=== PATIENT | female | born 1990 | race Caucasian/White ===

== ENCOUNTER → 2021-09-28 13:41 | Outpatient (CLI) | payer OTHER, SELFPAY ==
--- NOTE | 2021-09-28 13:44 | DI.US.S_ITS ---
PROCEDURE: US OB >= 14 WEEKS FETUS INDICATIONS: 20 wk anatomy scan OUTSIDE/PRIOR DATING DATA: Last menstrual period (LMP):04/28/21 LMP-based estimated date of delivery (VERN): 02/02/22. First dating scan (date and location): 07/12/21. Estimated date of delivery (VERN) from first dating scan: 02/02/22. TECHNIQUE: Real-time scanning was performed of the fetus, with image documentation and biometric measurements. COMPARISON: None. FINDINGS: General: A single living intrauterine gestation is present. Presentation: Vertex. Placenta: Placental position is posterior , without previa. Amniotic fluid index: 14.1 cm, normal range is 5-24 cm. heart rate: 152 beats per minute. Maternal cervical canal: 3.7 cm long. Normal lower limit is 2.5 cm. biometrics: Biparietal diameter: 5.5 cm 22 weeks 5 days Head circumference: 20.3 cm 22 weeks 3 days Abdominal circumference: 17.7 cm 20 weeks 4 days Femur length: 3.7 cm 21 weeks 6 days Composite gestational age from initial scan: Not applicable Composite gestational age from present scan: 22 weeks 3 days Estimated weight and percentile: 495 g 69th percentile Anatomic survey: Neuro: Ventricles are non-dilated at less than 10 mm. Cisterna magna is normal at 3-11 mm. Cerebellum is normal in size and morphology. Nuchal skin fold: Normal at less than 6 mm between 14-21 weeks gestational age. Face: Nose and lips, facial profile are not well seen. Spine: No evidence for spina bifida. Heart: 4-chambered heart is present, with normal ventricular outflow tracts. Diaphragm: Diaphragm is intact. Stomach: Left-sided stomach is present. Kidneys: No hydronephrosis. Normal is less than 5 mm in 2nd trimester, less than 7 mm in 3rd trimester. Cord: 3-vessel cord has orthotopic insertion. Bladder: Normal in size. Extremities: All 4 extremities identified. IMPRESSION: Single live intrauterine with ultrasound gestational age today of 22 weeks 3 days. Nose, lips and facial profile are within normal limits. We strive to produce accurate, complete, and clear reports of imaging services. To assist us in improving patient care, this report was composed using standard report templates and voice recognition software. Therefore, it may contain abnormal punctuation, insertions and/or omissions. Occasional wrong-word or sound-alike substitutions may occur. Though we review the report and make efforts to correct it, we do recommend that the report be read carefully in proper context to recognize any text inaccuracies. Dictated by: Viky Jerome M.D. on 10/11/2021 at 13:31 Approved by: Viky Jerome M.D. on 10/11/2021 at 13:37
== END ==
PROVIDERS: Referring Provider Obstetrics & Gynecology; Visit Provider Obstetrics & Gynecology
DX: Z34.02 Encounter for supervision of normal first pregnancy, second trimester (principal); Z3A.22 22 weeks gestation of pregnancy
CPT/HCPCS: 76811

== ENCOUNTER → 2021-11-02 08:54 | Outpatient (CLI) | payer OTHER, SELFPAY ==
[2021-11-02 11:04] LABS: Hematocrit 30.9 % (36-46); Hemoglobin 10.8 g/dL (12.0-16.0)
[2021-11-02 11:45] LABS: GTT (PREG) 1 Hour PP 50gm Dose 91 mg/dL (76-139)
== END ==
PROVIDERS: Referring Provider Obstetrics & Gynecology; Visit Provider Obstetrics & Gynecology
DX: Z34.02 Encounter for supervision of normal first pregnancy, second trimester (principal); Z3A.20 20 weeks gestation of pregnancy
CPT/HCPCS: 36415; 82950; 85014; 85018; 87086

== ENCOUNTER → 2021-12-19 08:45 | Outpatient (CLI) | payer OTHER, SELFPAY ==
[2021-12-19 15:33] LABS: Urine N gonorrhoeae NOT DETECTED
[2021-12-19 15:39] LABS: Urine Chlamydia NOT DETECTED
== END ==
PROVIDERS: Visit Provider Obstetrics & Gynecology
DX: Z34.03 Encounter for supervision of normal first pregnancy, third trimester (principal); Z3A.33 33 weeks gestation of pregnancy
CPT/HCPCS: 87491; 87591

== ENCOUNTER → 2022-01-09 08:17 | Outpatient (CLI) | payer OTHER, SELFPAY ==
[2022-01-10 08:08] LABS: Strep Grp B PCR NEG for Grp B Strep
== END ==
PROVIDERS: Visit Provider Specialist
DX: Z34.03 Encounter for supervision of normal first pregnancy, third trimester (principal); Z3A.36 36 weeks gestation of pregnancy
CPT/HCPCS: 87653

== ENCOUNTER 2022-02-06 08:37 | Outpatient (CLI) | payer OTHER, SELFPAY ==
--- NOTE | 2022-02-06 09:37 | PM.OBTRLD ---
Visit Information Visit Information Date of evaluation: 02/06/22 Primary OB Provider: Roberto Ibarra On-call OB Provider: Roberto Ibarra Reason for Evaluation: Yes non-stress test Comments/Additional reasons for admission: Post-dates, 40+4 PFSH Medical History (Updated 02/06/22 @ 08:35 by Roberto Ibarra MD) Abnormal Pap smear of cervix Chicken pox (~2008) Surgical History (Updated 09/10/21 @ 21:18 by Franny Dodd) History of tonsillectomy S/P ASA/PRK (advanced surface ablation photorefractive keratectomy) (~06/2020) [place] teeth extracted Family History (Updated 09/10/21 @ 21:20 by Franny Dodd) Grandmother Diabetes mellitus Hyperlipidemia Hypertension Congestive heart failure Grandfather Diabetes mellitus Hypertension Hyperlipidemia Depression Stroke Father Hyperlipidemia Mother Breast cancer Social History marital status: unmarried,living together number of children: 0 household members: significant other lives independently: Yes housing: [facility] pets and animals: Yes (2 Dogs) education level: high school occupational status: employed current occupational exposures/hazards: No special edna needs: No travel history: over 6 months ago seatbelt use: always water heater temp set < 120 deg: No (Will adjust) working smoke detector in home: Yes fire extinguisher in home: Yes carbon monox detector in home: Yes firearms in home: Yes firearms unloaded and locked: Yes do you feel safe at home: Yes Smoking Status: Never smoker second hand exposure: No alcohol intake: former substance use type: does not use during the past year weight has: remained stable well-balanced diet: daily or most days daily servings fruits/ve-4 caffeine: Yes (Aware of 200mg limit) Type(s) of exercise: walking and running Evaluation Evaluation Baseline heart rate: 135 Variability: Moderate (11-25) monitor accelerations: Present Monitor Decelerations: Absent Contraction Frequency (minutes): 6 Uterine Contraction Intensity: Mild Cervical dilation (cm): 0 Cervical effacement (%): 90 station: -2 Comments: Bedside US KYRA = 11.2 cm, Gr. 3 fundal placenta Diagnosis, Plan/Disposition Plan/Disposition Plan: Admit for cervical ripening 02/11/2022. Labor precautions. OB Disposition: home
== END 2022-02-06 09:35 | disposition home or self-care (01) ==
LOC: OB 10:50
PROVIDERS: Referring Provider Obstetrics & Gynecology; Visit Provider Obstetrics & Gynecology
DX: O48.0 Post-term pregnancy (principal); Z3A.40 40 weeks gestation of pregnancy
CPT/HCPCS: 59025; 76815; G0378; G0379

== ENCOUNTER 2022-02-09 05:50 | Observation (INO) | payer OTHER, SELFPAY ==
[2022-02-09] MEDS: hydrOXYzine pamoate 25 MG CAPSULE 50 MG PO (06:53)
[2022-02-09] MEDS: MORPHINE 10 MG/ML INJ IM (06:53)
== END 2022-02-09 06:54 | disposition home or self-care (01) ==
LOC: LABOR 05:53
PROVIDERS: Admitting Provider Obstetrics & Gynecology; PCP General Practice; Referring Provider Obstetrics & Gynecology; Visit Provider Obstetrics & Gynecology
DX: O48.0 Post-term pregnancy (principal); Z3A.41 41 weeks gestation of pregnancy
CPT/HCPCS: 59025; 96372; G0378; G0379; J2270

== ENCOUNTER 2022-02-09 20:39 | Inpatient (IN) | payer OTHER, SELFPAY ==
--- NOTE | 2022-02-09 21:15 | P.HPOB_ITS ---
OB HPI Date/Time Date of admission: 02/09/22 Date Patient Seen: 02/09/22 Time Patient Seen: 21:16 History of Present Condition Chief complaint: VERN Calculator Estimated Delivery Date Method Current WG Current Estimate 02/02/22 Ultrasound #1 41w 0d Other Estimates 02/02/22 LMP (Uncertain) 41w 0d Estimated Gestational Age (weeks): 41 : 1 Para: 0 care: good care, initiated at week # (7), number of visits (14) and pounds weight gain (48) Dating criteria OB: LMP confirmed by 1st trimester US Ultrasounds: normal 1st trimester US and normal mid trimester US Obstetrical complications: none Medical complications OB: none Preadmission Labs Last OB Lab Results: Hematocrit 30.9 % (36-46) L 11/02/21 10:03 Hemoglobin 10.8 g/dL (12.0-16.0) L 11/02/21 10:03 Glucose 1 Hour 91 mg/dL (76-139) 11/02/21 10:03 Group B Streptococcus (PCR) Neg for grp b strep 01/09/22 08:17 -: Chlamydia screen: negative, Gonorrhea screen: negative and Urine: negative -: PAP smear: Normal Genetic Screens: Cell-free DNA: Normal External Labs -: Urine: negative Evaluation Evaluation Baseline heart rate: 150 Variability: Moderate (11-25) monitor accelerations: Present Monitor Decelerations: Absent Contraction Frequency (minutes): 3 Uterine Contraction Intensity: Strong/Firm Status: Category l Dilation (cm): 1 Effacement (%): 90 station: -2 [facility] Medical History (Updated 02/06/22 @ 08:35 by Roberto Ibarra MD) Abnormal Pap smear of cervix Chicken pox (~2008) Surgical History (Updated 09/10/21 @ 21:18 by Franny Dodd) History of tonsillectomy S/P ASA/PRK (advanced surface ablation photorefractive keratectomy) (~06/2020) [place] teeth extracted Family History (Updated 09/10/21 @ 21:20 by Franny Dodd) Grandmother Diabetes mellitus Hyperlipidemia Hypertension Congestive heart failure Grandfather Diabetes mellitus Hypertension Hyperlipidemia Depression Stroke Father Hyperlipidemia Mother Breast cancer Social History marital status: unmarried,living together number of children: 0 household members: significant other lives independently: Yes housing: condominium pets and animals: Yes (2 Dogs) education level: high school occupational status: employed current occupational exposures/hazards: No special edna needs: No travel history: over 6 months ago seatbelt use: always water heater temp set < 120 deg: No (Will adjust) working smoke detector in home: Yes fire extinguisher in home: Yes carbon monox detector in home: Yes firearms in home: Yes firearms unloaded and locked: Yes do you feel safe at home: Yes Smoking Status: Never smoker second hand exposure: No alcohol intake: former substance use type: does not use during the past year weight has: remained stable well-balanced diet: daily or most days daily servings fruits/ve-4 caffeine: Yes (Aware of 200mg limit) Type(s) of exercise: walking and running Meds Home Medications and Allergies Home Medications Medication Instructions Recorded Confirmed Type docusate sodium 100 mg capsule 100 mg PO DAILY PRN 08/01/21 02/06/22 History prenat.vits,tulio,aui-avyg-sxnew 1 tab PO DAILY 08/01/21 02/06/22 History Allergies Allergy/AdvReac Type Severity Reaction Status Date / Time neomycin Allergy Mild Verified 02/06/22 08:13 OB Exam Narrative Exam Narrative: Generally: Patient is sitting up at side of bed, in moderate distress secondary to contractions Lungs: Clear to auscultation bilaterally Cardiovascular: Regular rate and rhythm Fundal height: 39 cm Estimated weight: 8-1/2 lb Extremities: Trace edema Assessment and Plan Assessment and Plan Assessment and Plan narrative: Assessment: 31-year-old 1 para 0 at 41 weeks gestation in prodromal labor Patient unable to get comfortable Plan: Admit Pain management Time Spent with Patient Total time spent with greater than 50% in coordination of care (as documented) at patient's floor/unit and/or counseling patient:: 15-24 minutes
[2022-02-09 21:45] LABS: Add Manual Diff / Slide Review NO; Basophils Absolute Auto 100 /uL (0-100); Basophils Percent Auto 0.4 % (0-2); Eosinophils Absolute Auto 0 /uL (0-450); Eosinophils Percent Auto 0.2 % (2-4); Hematocrit 35.3 % (36-46); Lymphocytes Absolute Auto 1900 /uL (1100-4500); Lymphocytes Percent Auto 10.7 % (25-40); Mean Corpuscular HGB Conc 33.9 % (30-36); Mean Corpuscular Hemoglobin 30.1 PG (26-34); Mean Corpuscular Volume 88.9 fL (80-100); Monocytes Absolute Auto 900 /uL (0-900); Monocytes Percent Auto 5.3 % (3-14); Neutrophils Absolute Auto 14700 /uL (1500-7000); Neutrophils Percent Auto 83.4 % (50-75); Platelet Count 286 X10^3/uL (150-400); Red Blood Cell Count 3.97 X10^6/uL (4.0-5.2); Red Cell Distribution Width 13.9 % (11.6-14.8); White Blood Cell Count 17.6 X10^3/uL (4.5-11.0)
[2022-02-09] MEDS: MORPHINE 10 MG/ML INJ 6 MG IV (21:58)
[2022-02-09] MEDS: hydrOXYzine pamoate 25 MG CAPSULE 50 MG PO (21:58)
[2022-02-09 21:59] LABS: COVID19 -Nasal RAPID Negative (Negative)
[2022-02-09 22:28] VITALS: BP 133/94
--- NOTE | 2022-02-10 00:18 | PM.OBPNLAB ---
Date/Time Date Patient Seen: 02/10/22 Time Patient Seen: 00:18 Pain Control Pain control: other (Very uncomfortable) Pelvic Exam Dilation (cm): 3 Effacement (%): 100 station: -1 Amniotic membrane status: Intact Contractions Contractions on admission: regular Contraction frequency (min): 3 Contraction duration (min): 1 Contraction pattern: Regular Contraction intensity: Strong/Firm Status status: Category l Heart Rate Baseline: 135 Monitor Accelerations: Present Monitor Decelerations: Absent Monitor Variability: Moderate Assessment and Plan Assessment: active labor (Progressing into active labor) Comments: IV fluid bolus Epidural Expectant management to
[2022-02-10] MEDS: LACTATED RINGERS 1,000 ML 100 ML IV ×2 (00:23→10:41)
[2022-02-10] MEDS: fentaNYL 100 MCG/2 ML INJ 50 MCG IV (02:52)
[2022-02-10] MEDS: FENT 2MCG/ML BUPIV 0.125% EPI 200 MCG/100 ML PLAST..BAG 10 MCG EPIDURAL (03:15)
--- NOTE | 2022-02-10 05:04 | PM.OBPNLAB ---
Date/Time Date Patient Seen: 02/10/22 Time Patient Seen: 05:05 Pain Control Pain control: epidural Pelvic Exam Dilation (cm): 4 Effacement (%): 100 station: 0 Amniotic membrane status: Intact Contractions Contractions on admission: regular Monitor mode: External Contraction frequency (min): 3 Contraction duration (min): 1 Contraction pattern: Regular Contraction intensity: Strong/Firm Status status: Category l Heart Rate Baseline: 135 Monitor Accelerations: Present Monitor Decelerations: Absent Monitor Variability: Moderate Assessment and Plan Assessment: active labor Comments: Let pt sleep for a few hours now that she is comfortable with epidural AROM if needed Pitocin augmentation as needed Expectant management to
[2022-02-10] MEDS: OXYTOCIN PREMIX 30 UNIT/500 ML PLAST..BAG IV (08:25)
[2022-02-10] MEDS: FENT 2MCG/ML BUPIV 0.125% EPI 200 MCG/100 ML PLAST..BAG 6 MCG EPIDURAL (09:39)
--- NOTE | 2022-02-10 12:19 | PM.OBPNLAB ---
Date/Time Date Patient Seen: 02/10/22 Time Patient Seen: 12:20 Pain Control Pain control: epidural Comments: Some pain on the left side Pelvic Exam Dilation (cm): 9 Effacement (%): 100 station: +1 Amniotic membrane status: Intact Contractions Monitor mode: External Pitocin rate (mU/min): 9 Contraction frequency (min): 3 Contraction pattern: Regular Contraction intensity: Strong/Firm Status status: Category l Heart Rate Baseline: 135 Monitor Accelerations: Present Monitor Decelerations: Absent Monitor Variability: Moderate Assessment and Plan Assessment: active labor Comments: Rim of cervix on the patient's right Right side with peanut ball Expectant management to
--- NOTE | 2022-02-10 14:46 | PM.OBPRVD ---
Labor & Delivery Delivery date: 02/10/22 Intrapartal Events: Prolonged Latent Phase Cervical ripening method: none Induction method: none Delivery augmentation: rupture of membranes and pitocin Delivery monitor: external FHT and external uterine Route of delivery: Episiotomy description: None L&D Laceration Description: Superficial (Bilateral labial) Delivery repair: chromic Quantitative Blood Loss: 275 Anesthesia Type: Epidural Complications: None Narrative: Patient complete and pushed for 15 minutes. At 2:17 p.m., a live female infant delivered spontaneously in the [place] presentation. A nuchal cord x1 was reduced on the perineum. The remainder of the body delivered without difficulty and was placed on mom's abdomen. The cord was double clamped and cut after it stopped pulsing. Cord bloods were obtained. The placenta delivered intact with a three-vessel cord at 2:37 p.m.. Pitocin was given in the IV fluids. The fundus was massaged to firm and there were 2 large clots that were passed. Bilateral superficial labial lacerations were repaired with 3-0 chromic in the usual fashion. Hemostasis was achieved. QBL 275 cc. Apgars 9 at 1 minute and 9 at 5 minutes. . Epidural analgesia. Mom and infant stable to recovery. Baby 1: Infant gender: Female Presentation: vertex Position: Right Occiput Anterior Placenta delivery description: Spontaneous Cord Vessel Description: 3 Vessels, Nuchal Cord, Loose, Reduced and Clamped/Cut (After the cord stopped pulsing) score (1 min): 9 score (5 min): 9 weight: 9 lb 2 oz Plan for aftercare: Routine care
[2022-02-10] MEDS: LANOLIN OINT 7 GM 1 APPLIC TOP (17:37)
[2022-02-10] MEDS: DERMOPLAST SPRAY 20% 60 ML 1 SPRAY TOP (17:38)
[2022-02-10 17:39] VITALS: TEMP 37.4
[2022-02-10] MEDS: ACETAMINOPHEN 325 MG TABLET 650 MG PO (17:39)
[2022-02-10] MEDS: IBUPROFEN 600 MG TABLET PO (19:21)
[2022-02-11] MEDS: ACETAMINOPHEN 325 MG TABLET 650 MG PO ×4 (00:33→18:52)
[2022-02-11] MEDS: IBUPROFEN 600 MG TABLET PO ×3 (04:41→18:52)
[2022-02-11 06:11] LABS: Hematocrit 28.1 % (36-46); Hemoglobin 9.4 g/dL (12.0-16.0)
[2022-02-11] MEDS: DOCUSATE 100 MG CAPSULE PO (09:43)
[2022-02-11] MEDS: PRENATAL VIT,CALC/IRON/FOLIC 1 TABLET 1 TAB PO (09:43)
--- NOTE | 2022-02-11 18:50 | P.DS_ITS ---
Discharge Providers Provider Date of admission: 02/09/22 20:39 Discharge Date: 02/11/22 Primary care physician: Homer KNIGHT Provider Consults: 02/11/22 14:49 Consult to Outreach Coordinator Routine Comment: Discharge provider: Nery Pedro MD Summary Hospital Course Date Patient Seen: 02/11/22 Time Patient Seen: 10:00 Hospital Course: Patient is a 31-year-old 1 para 1 who presented on February 09, 2022 in prodromal labor. She had a cervix that had remained at 1 cm but with 1 of the checks was able to break down a little scar tissue and she went to 3 cm. She received an epidural for pain management. She slept overnight. She was started on Pitocin augmentation on February 10, 2022. She progressed to complete dilation and had a spontaneous vaginal delivery without complication. Her course was unremarkable. She is discharged home on day #1. Peripartum Data Infant Delivery Method: Natural Vaginal Laceration Description: Superficial (Bilateral labial) Episiotomy description: None Procedures: Epidural analgesia Pitocin augmentation of labor Spontaneous vaginal delivery Superficial bilateral labial laceration repair complications: none [place] 1: Gender: Female Disposition of : home Status at Discharge Cognitive/behavioral status at discharge: oriented Functional status at discharge: independent ambulation Overall status at discharge: patient is progressing back to baseline Time Spent with Patient Time attestation: Total time spent providing and/or coordinating discharge services: Time spent: Less than 30 minutes Objective Labs Result Diagrams: 02/11/22 06:00 Labs: Laboratory Results - last 24 hr 02/11/22 06:00 Hgb 9.4 L Hct 28.1 L Exam Narrative Exam Narrative: Generally: Patient is sitting up in bed, no acute distress Fundus: Firm at U -1 Extremities: Negative Homans, no edema Discharge Plan Discharge Plan Patient Disposition: Home Provider Discharge Comment: Call with fever, chills, or bleeding vaginally more than a pad in an hour Ibuprofen 600 mg every 6 hours as needed for cramping Tylenol 650 mg every 6 hours as needed Push oral fluids Stool softeners as needed Discharge orders & Medications Prescriptions: Continued prenat.vits,tulio,txe-hoyk-aavqf Tablet 1 tab PO DAILY docusate sodium 100 mg capsule 100 mg PO DAILY PRN (Reason: Constipation) Follow up/Referrals: Roberto Ibarra MD [Physician] - ( appt: please f/u w/ Dr. Ibarra on @ 10:00am) Diet/Activity/Treatments Diet: Regular Activity: Nothing in the vagina for 6 weeks Skin/Wound/Dressing Care Report to your healthcare provider any signs of infection, such as:: chills, fever, increased pain and unusual drainage Visit Report/Discharge Packet Instructions: DI for Labor and Delivery, Vaginal Stand Alone Forms: Discharge: Care Discharge Data Primary Care Provider: ProviderHomer
== END 2022-02-11 20:00 | disposition home or self-care (01) | DRG 807 ==
PROVIDERS: Admitting Provider Obstetrics & Gynecology; Referring Provider Obstetrics & Gynecology; Visit Provider Obstetrics & Gynecology
DX: O48.0 Post-term pregnancy (principal); Z37.0 Single live birth; Z3A.41 41 weeks gestation of pregnancy; O70.0 First degree perineal laceration during delivery; O63.0 Prolonged first stage (of labor); O69.81X0 Labor and delivery complicated by cord around neck, without compression, not applicable or unspecified; Z20.822 Contact with and (suspected) exposure to COVID-19
CPT/HCPCS: 36415; 59025; 59050; 59400; 59409; 85014; 85018; 85025; 86850; 86900; 86901; 87635; 96372; C9803; G0378; G0379; J2270; J2590; J3010

== ENCOUNTER → 2022-03-02 11:32 | Outpatient (CLI) | payer OTHER, SELFPAY ==
[2022-03-02 12:48] LABS: Appearance Urine UA CLEAR; Bilirubin Urine UA NEGATIVE (NEGATIVE); Color Urine UA YELLOW; Glucose Urine UA NEGATIVE (Negative); Ketones Urine UA NEGATIVE (NEGATIVE); Leukocyte Esterase Urine UA 2+ (NEGATIVE); Nitrite Urine UA NEGATIVE (Negative); Occult Blood Urine UA 2+ (Negative); Protein Urine UA NEGATIVE (Negative); Specific Gravity Urine UA <=1.005 (1.000-1.035); Urobilinogen Urine UA 0.2 E.U./dL (0.2)
[2022-03-02 14:01] LABS: Bacteria Urine Few (2-10); Culture Indicated Urine Specimen Cultured; RBC Urine 5-10/HPF (0-5/HPF); Squamous Epithelial Cell Urine 5-10 /HPF (0-5/HPF); WBC Urine 5-10/HPF (0-5/HPF); pH Urine UA 5.5 (4.5-8.0)
== END ==
PROVIDERS: PCP General Practice; Referring Provider Obstetrics & Gynecology; Visit Provider Obstetrics & Gynecology
DX: R39.9 Unspecified symptoms and signs involving the genitourinary system (principal)
CPT/HCPCS: 81001; 87086

== ENCOUNTER 2022-06-16 10:10 | Emergency (ER) | payer OTHER, SELFPAY ==
--- NOTE | 2022-06-16 10:30 | ED.EYEPROB ---
HPI - Eye Problem General Stated complaint: R eye pain/redness Time Seen by Provider: 06/16/22 10:24 History of Present Illness HPI Narrative: This patient comes to the ER today because of a red eye with discharge. Low-grade fever noted as well. Yesterday she had the worst migraine of her life but that has resolved this morning. She was vomiting yesterday but she attributes that to the severity of her headache. She also has some URI symptoms with a scratchy throat little bit of cough and low-grade fever. She noticed purulent draining right eye this morning is concerned that it might be a risk for her daughter. She denies any other chronic health conditions. No vision disturbance. She did report some cloudy vision but that resolved after she cleaned out the discharge from her eye. Related Data Home Medications Medication Instructions Recorded Confirmed docusate sodium 100 mg capsule 100 mg PO DAILY PRN Constipation 08/01/21 03/26/22 prenat.vits,tulio,gwd-grqe-waums 1 tab PO DAILY 08/01/21 03/26/22 Previous Rx's Medication Instructions Recorded norethindrone (contraceptive) 0.35 0.35 mg PO DAILY #84 tabs 03/26/22 mg tablet tobramycin 0.3 %-dexamethasone 0.1 1 drp EYE-RIGHT QID 5 days #2.5 mL 06/16/22 % eye drops,suspension (TobraDex) Allergies Allergy/AdvReac Type Severity Reaction Status Date / Time neomycin Allergy Mild Verified 03/26/22 10:17 Patient History Medical History (Updated 06/16/22 @ 10:34 by Yoel Hendrix MD) Abnormal Pap smear of cervix Chicken pox (~2008) Surgical History (Updated 09/10/21 @ 21:18 by Franny Dodd) History of tonsillectomy S/P ASA/PRK (advanced surface ablation photorefractive keratectomy) (~06/2020) [place] teeth extracted Family History (Updated 09/10/21 @ 21:20 by Franny Dodd) Grandmother Diabetes mellitus Hyperlipidemia Hypertension Congestive heart failure Grandfather Diabetes mellitus Hypertension Hyperlipidemia Depression Stroke Father Hyperlipidemia Mother Breast cancer Social History marital status: unmarried,living together number of children: 0 household members: significant other lives independently: Yes housing: [facility] pets and animals: Yes (2 Dogs) education level: high school occupational status: employed current occupational exposures/hazards: No special edna needs: No travel history: over 6 months ago seatbelt use: always water heater temp set < 120 deg: No (Will adjust) working smoke detector in home: Yes fire extinguisher in home: Yes carbon monox detector in home: Yes firearms in home: Yes firearms unloaded and locked: Yes do you feel safe at home: Yes Smoking Status: Never smoker second hand exposure: No alcohol intake: former substance use type: does not use during the past year weight has: remained stable well-balanced diet: daily or most days daily servings fruits/ve-4 caffeine: Yes (Aware of 200mg limit) Type(s) of exercise: walking and running Smoking Status: Never smoker Exam Narrative Exam Narrative: GENERAL: Alert, cooperative and in no distress. HEAD: Atraumatic. Normocephalic. EYES: Conjunctival injection on the right. Normal extraocular movements. No purulence. No periorbital redness or swelling ENT: No rhinorrhea. Oropharynx is moist. Mouth exam is benign. NECK: Supple. Full range of motion. No cervical adenopathy CARDIOVASCULAR: Normal rate and rhythm without murmur gallop or rub. RESPIRATORY: Clear to auscultation. Breath sounds equal bilaterally. No wheezes, rales, or rhonchi. GASTROINTESTINAL: Abdomen soft, non-tender, nondistended. EXTREMITIES: No edema, full range of motion. No obvious trauma. BACK: Normal inspection, no CVA tenderness. NEURO: Nonfocal examination, normal speech, normal gait. SKIN: No rash or erythema of visible areas PSYCH: Normally oriented. Normal range of affect. Appropriate behavior MDM - Eye Problem MDM Narrative Medical decision making narrative: Patient has a single self-limited problem of viral conjunctivitis. We will prescribe antibiotic and drops as prophylaxis and because of the steroid that is contained therein. So I have given her prescription medication. No other testing or imaging is indicated. Discharge Plan Departure Patient Disposition: Home Clinical Impression: Conjunctivitis Activity Restrictions/Additional Instructions: You almost certainly have viral conjunctivitis which does not require any specific treatment other than moist compresses to clean away the discharge. This is quite contagious but only contagious through touching. His long as you are very careful with hand hygiene and covering your cough or sneezing and washing her hands after touching her face, your young daughter should not be at risk for acquiring this infection. I recommend TobraDex drops for comfort if needed. Follow-up with your eye doctor later this week if the symptoms are not resolving. Prescriptions: New tobramycin-dexamethasone [TobraDex] 0.3-0.1 % drops,suspension 1 drp EYE-RIGHT QID 5 Days Qty: 2.5 0RF No Action prenat.vits,tulio,rab-dtzq-ufrhv Tablet 1 tab PO DAILY docusate sodium 100 mg capsule 100 mg PO DAILY PRN (Reason: Constipation) norethindrone (contraceptive) 0.35 mg tablet 0.35 mg PO DAILY Qty: 84 3RF Referrals: Poncho Alvarado MD [Primary Care Provider] - Stand Alone Forms: Patient Portal/API
[2022-06-16 10:39] VITALS: BP 123/83; PULSE 96; RESP 18; TEMP 36.8; O2SAT 96; BMI 25.7
--- NOTE | 2022-06-16 10:45 | PC.NURSE ---
seen and assessed by MD without RN involvement. First interaction with pt is DC
== END 2022-06-16 10:54 | disposition home or self-care (01) ==
PROVIDERS: Emergency Provider Family Medicine Addiction Medicine; PCP General Practice
DX: H10.9 Unspecified conjunctivitis (principal)
CPT/HCPCS: 99281

== ENCOUNTER → 2024-03-22 08:11 | Outpatient (CLI) | payer OTHER, SELFPAY ==
--- NOTE | 2024-03-22 08:14 | DI.US.S_ITS ---
PROCEDURE: US OB <= 14 WEEKS FETUS INDICATIONS: dating and viability OUTSIDE/PRIOR DATING DATA: Last menstrual period (LMP): 01/12/2024. LMP-based estimated date of delivery (VERN): 10/18/2024. First dating scan (date and location): 03/22/2024. Estimated date of delivery (VERN) from first dating scan: 10/18/2024. The calculations are made using the ultrasound VERN of 10/18/2024. TECHNIQUE: Real-time scanning was performed of the fetus and maternal pelvic organs, with image documentation. COMPARISON: None. FINDINGS: Embryo: Bells-rump length measuring 3.1 cm, gestational age 10 weeks 0 days Heart rate: 178 bpm. A yolk sac is seen. No perigestational hemorrhage. Maternal organs: -Cervix measures 3.2 cm and is closed. -Right ovarian unilocular cyst measuring 18.1 x 14.7 x 8.2 cm. There is mobile debris within the cyst. The small mural nodule measuring 2.5 cm. There appears to be blood flow within the nodule. -Left ovarian unilocular cyst measuring 3.5 x 2.9 x 2.4 cm. There is mobile debris within the cyst. IMPRESSION: 1. [place] living intrauterine at 10 weeks 0 days based on today's crown rump length. 2. No perigestational hemorrhage. 3. Massive right ovarian cyst measuring 18.1 cm. Small mural nodule measuring 2.5 cm. O-Rads 4. -Recommend gynecological consultation. 4. Left ovarian cyst with mobile debris measuring 3.5 cm. O-Rads 2. We strive to produce accurate, complete, and clear reports of imaging services. To assist us in improving patient care, this report was composed using standard report templates and voice recognition software. Therefore, it may contain abnormal punctuation, insertions and/or omissions. Occasional wrong-word or sound-alike substitutions may occur. Though we review the report and make efforts to correct it, we do recommend that the report be read carefully in proper context to recognize any text inaccuracies. Dictated by: Viral Valadez M.D. on 03/22/2024 at 9:47 Approved by: Viral Valadez M.D. on 03/22/2024 at 9:57
[2024-03-22 09:32] LABS: Add Manual Diff / Slide Review NO; Basophils Absolute Auto 0 /uL (0-100); Basophils Percent Auto 0.3 % (0-2); Eosinophils Absolute Auto 100 /uL (0-450); Eosinophils Percent Auto 0.6 % (2-4); Hematocrit 37.2 % (36-46); Hemoglobin 12.7 g/dL (12.0-16.0); Lymphocytes Absolute Auto 1700 /uL (1100-4500); Lymphocytes Percent Auto 20.7 % (25-40); Mean Corpuscular HGB Conc 34.3 % (30-36); Mean Corpuscular Hemoglobin 30.7 PG (26-34); Mean Corpuscular Volume 89.5 fL (80-100); Monocytes Absolute Auto 600 /uL (0-900); Monocytes Percent Auto 6.8 % (3-14); Neutrophils Absolute Auto 6000 /uL (1500-7000); Neutrophils Percent Auto 71.6 % (50-75); Platelet Count 326 X10^3/uL (150-400); Red Blood Cell Count 4.15 X10^6/uL (4.0-5.2); White Blood Cell Count 8.4 X10^3/uL (4.5-11.0)
[2024-03-22 15:46] LABS: Hepatitis B Surface Antigen NEGATIVE s/c (NEGATIVE); Rubella Antibody IgG 17.6 IU/mL (>15)
[2024-03-22 16:05] LABS: HIV 1 & 2 Ab/Ag 4th Gen Combo NEGATIVE (NEGATIVE); Hep C Virus Ab w/Reflex Quant NEGATIVE s/c (NEGATIVE)
[2024-03-23 05:40] LABS: RPR Screen Non Reactive (Non Reactive)
[2024-03-23 08:36] LABS: Varicella IgG Antibody Reactive (Non Reactive)
== END ==
PROVIDERS: PCP General Practice; Referring Provider Obstetrics & Gynecology; Visit Provider Obstetrics & Gynecology
DX: O34.81 Maternal care for other abnormalities of pelvic organs, first trimester (principal); N83.291 Other ovarian cyst, right side; N83.292 Other ovarian cyst, left side; Z3A.10 10 weeks gestation of pregnancy
CPT/HCPCS: 36415; 76801; 76830; 80055; 86787; 86803; 86850; 86900; 86901; 87086; 87389; 93976

== ENCOUNTER → 2024-04-06 08:35 | Outpatient (CLI) | payer OTHER, SELFPAY ==
[2024-04-06 09:31] LABS: Lactate Dehydrogenase 127 U/L (120-246)
[2024-04-06 10:02] LABS: Cancer Antigen 125 < 5.5 U/mL (0-35); Carcinoembryonic Antigen 0.7 ng/mL (0.1-3.0)
[2024-04-06 11:19] LABS: Urine N gonorrhoeae NOT DETECTED
[2024-04-06 11:36] LABS: Urine Chlamydia NOT DETECTED
[2024-04-07 07:40] LABS: Alpha Fetoprotein 11.8 ng/mL (0.0-6.4)
== END ==
LOC: LAB 08:36
PROVIDERS: Referring Provider Obstetrics & Gynecology; Visit Provider Obstetrics & Gynecology
DX: O34.81 Maternal care for other abnormalities of pelvic organs, first trimester (principal); N83.209 Unspecified ovarian cyst, unspecified side
CPT/HCPCS: 36415; 82105; 82378; 83520; 83615; 86304; 86305; 87491; 87591

== ENCOUNTER 2024-04-24 18:12 | Emergency (ER) | payer OTHER, SELFPAY ==
[2024-04-24 18:29] VITALS: BP 129/82; PULSE 94; RESP 20; TEMP 36.9; O2SAT 99; BMI 24.9
--- NOTE | 2024-04-24 18:35 | DI.US.S_ITS ---
PROCEDURE: US OB >= 14 WEEKS FETUS INDICATIONS: pain, hx 14weeks gest, also has R ov cyst 18cm awaiting surg OUTSIDE/PRIOR DATING DATA: Last menstrual period (LMP): 01/12/2024. LMP-based estimated date of delivery (VERN): 10/18/2024. First dating scan (date and location): 03/22/2024. Estimated date of delivery (VERN) from first dating scan: 10/18/2024. TECHNIQUE: Real-time scanning was performed of the fetus, with image documentation. COMPARISON: [facility], , US OB <= 14 WEEKS FETUS, 03/22/2024, 8:31. FINDINGS: General: A single live intrauterine gestation is present. Presentation: Mobile. Placenta: Placental position is posterior , without previa. Amniotic fluid index: Within normal limits by visual inspection. heart rate: 150 beats per minute. Anatomic survey: It is too early for detailed anatomic evaluation. The right ovary is abnormal, measuring 17.7 x 11.9 x 17.6 cm. There is a complex cyst with debris measuring 8.7 x 3.4 x 2.6 cm. Within the right ovary, there is a solid component seen, with internal vascularity. The left ovary is not seen. IMPRESSION: A single live intrauterine is seen. There is a grossly abnormal right ovarian complex cyst, which is similar to the prior ultrasound. We strive to produce accurate, complete, and clear reports of imaging services. To assist us in improving patient care, this report was composed using standard report templates and voice recognition software. Therefore, it may contain abnormal punctuation, insertions and/or omissions. Occasional wrong-word or sound-alike substitutions may occur. Though we review the report and make efforts to correct it, we do recommend that the report be read carefully in proper context to recognize any text inaccuracies. Dictated by: Nico Luciano M.D. on 04/24/2024 at 18:56 Approved by: Nico Luciano M.D. on 04/24/2024 at 19:00
--- NOTE | 2024-04-24 18:37 | ED.GENADULT ---
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 Ibarra, who had referred her to [facility], where she is awaiting surgery for this large ovarian cyst on Friday in 2 days. A couple hours prior to presentation today she had markedly increased right lower quadrant right pelvic area discomfort, no nausea or vomiting, no fevers or chills, no vaginal bleeding, no leakage of fluid symptoms. No injury or trauma new activities recalled. No fevers or chills. She has not had any vaginal bleeding symptoms. Right abdominopelvic area discomfort in the area of her known large ovarian cyst. No other areas of abdominopelvic discomfort at this time. Related Data Home Medications Medication Instructions Recorded Confirmed prenat.vits,tulio,[id number] 1 tab PO DAILY 08/01/21 04/06/24 Allergies Allergy/AdvReac Type Severity Reaction Status Date / Time neomycin Allergy Mild swelling Verified 04/24/24 18:29 Patient History Medical History (Updated 04/24/24 @ 20:27 by Stiven Purdy MD) Insomnia Anemia affecting Chicken pox (~2008) Abnormal Pap smear of cervix Surgical History (Updated 09/10/21 @ 21:18 by Franny Dodd) History of tonsillectomy S/P ASA/PRK (advanced surface ablation photorefractive keratectomy) (~06/2020) [place] teeth extracted Family History (Updated 02/24/24 @ 08:11 by Latasha Jerome RN) Grandmother Diabetes mellitus Hyperlipidemia Hypertension Congestive heart failure Grandfather Diabetes mellitus Hypertension Hyperlipidemia Depression Stroke Father Hyperlipidemia Mother Breast cancer Social History marital status: unmarried,living together number of children: 1 household members: significant other and children lives independently: Yes caregiver/support person: Yes housing: house pets and animals: Yes (2 Dogs) education level: college (some college) 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[employer]) current occupational exposures/hazards: No special edna needs: No travel history: recent ([place]) seatbelt use: always helmet use: Yes water heater temp set < 120 deg: Yes working smoke detector in home: Yes fire extinguisher in home: Yes carbon monox detector in home: Yes firearms in home: Yes firearms unloaded and locked: Yes do you feel safe at home: Yes Smoking Status: Never smoker second hand exposure: No alcohol intake: never substance use type: does not use during the past year weight has: decreased > 10 lbs (~15 lb loss recently intentionally w/ exercise) well-balanced diet: daily or most days daily servings fruits/ve-4 caffeine: Yes (Aware of 200mg limit) Type(s) of exercise: walking, weight lifting, resistance training and running Smoking Status: Never smoker Exam Narrative Exam Narrative: GENERAL: Well-developed patient, in moderate distress. Standing at side of bed leaning over the gurney in her preferred position of comfort HEAD: Atraumatic. Normocephalic. EYES: Pupils equal round and reactive. Extraocular motions intact. No scleral icterus. No injection or drainage. ENT: Nose without bleeding, purulent drainage. Throat without erythema, tonsillar hypertrophy or exudate. Airway patent. CARDIOVASCULAR: Regular rate and rhythm without murmurs, gallops, or rubs. RESPIRATORY: Clear to auscultation. Breath sounds equal bilaterally. No wheezes, rales, or rhonchi. GASTROINTESTINAL: Limited by standing leaning over bed prefers position of comfort for examination, some tenderness right lower quadrant, could not obviously feel fundal height or definite right-sided mass in this examining position. EXTREMITIES: No edema or joint tenderness. BACK: Nontender without deformity or crepitance. No flank tenderness. NEURO: AOx3. Motor functions grossly nonfocal SKIN: No rash or erythema of visible areas Initial Vital Signs Initial Vital Signs: Vital Signs Temperature 98.4 F 04/24/24 18:29 Pulse Rate 94 H 04/24/24 18:29 Respiratory Rate 20 04/24/24 18:29 Blood Pressure 129/82 04/24/24 18:29 Pulse Oximetry 99 04/24/24 18:29 Oxygen Delivery Method Room Air 04/24/24 18:29 Course Orders Ordered: ED Orders 04/24/24 18:35 US OB >= 14 weeks Fetus Stat 04/24/24 19:10 CMP [Comprehensive Metabolic Panel] Stat Complete Blood Count AUTO DIFF Stat Discontinued Medications Hydrocodone Bitart/Acetaminophen (Hydrocodone/Acet 5/325 Prepack) 1 bottle MISC DIRECTED ONE Stop: 04/24/24 20:24 Last Admin: 04/24/24 20:28 Dose: 1 bottle Documented By: ELVI Morphine Sulfate (Morphine 4 Mg/Ml Inj) 4 mg IV NOW ONE Stop: 04/24/24 19:13 Last Admin: 04/24/24 19:26 Dose: 4 mg Documented By: JOSELUIS Ondansetron HCl (Ondansetron 4 Mg/2 Ml Inj) 4 mg IV NOW ONE Stop: 04/24/24 19:13 Last Admin: 04/24/24 19:20 Dose: 4 mg Documented By: JOSELUIS Ondansetron HCl (Ondansetron 4 Mg Odt Prepack) 1 bottle MISC DIRECTED ONE Stop: 04/24/24 20:24 Last Admin: 04/24/24 20:28 Dose: 1 bottle Documented By: ELVI Vital Signs Vital signs: Vital Signs - 8 hr 04/24/24 18:29 04/24/24 19:25 Temperature 98.4 F Pulse Rate 94 H Respiratory Rate 20 18 Blood Pressure 129/82 Pulse Oximetry 99 Oxygen Delivery Method Room Air Medical Decision Making Lab Data Lab results reviewed: Yes I reviewed the patient's lab results. Lab results narrative: White blood cell count 76701, hemoglobin 11.9, platelets adequate. Basic metabolic panel unremarkable. Liver functions unremarkable. Urine dip negative. 04/24/24 19:10 04/24/24 19:10 Labs: Lab Results 04/24/24 Range/Units 19:10 WBC 15.1 H (4.5-11.0) X10^3/uL RBC 3.95 L (4.0-5.2) X10^6/uL Hgb 11.9 L (12.0-16.0) g/dL Hct 34.6 L (36-46) % MCV 87.5 (80-100) fL MCH 30.1 (26-34) PG MCHC 34.4 (30-36) % RDW 13.0 (11.6-14.8) % Plt Count 314 (150-400) X10^3/uL Neut % (Auto) 87.0 H (50-75) % Lymph % (Auto) 9.2 L (25-40) % [place] % (Auto) 3.7 (3-14) % Eos % (Auto) 0.0 L (2-4) % Baso % (Auto) 0.1 (0-2) % Neut # (Auto) 05002 H (6714-4241) /uL Lymph # (Auto) 1400 (8885-8878) /uL [place] # (Auto) 600 (0-900) /uL Eos # (Auto) 0 (0-450) /uL Baso # (Auto) 0 (0-100) /uL Sodium 134 L (137-145) mmol/L Potassium 3.5 (3.4-5.1) mmol/L Chloride 103 (98-107) mmol/L Carbon Dioxide 23 (22-32) mmol/L BUN 11 (7-17) mg/dL Creatinine 0.53 (0.52-1.04) mg/dL Estimated GFR > 60 (>60) mL/min BUN/Creatinine Ratio 20.8 (6-22) Glucose 135 H (70-100) mg/dL Calcium 9.0 (8.4-10.2) mg/dL Total Bilirubin 0.3 (0.2-1.3) mg/dL AST 22 (14-36) IU/L ALT 14 (<35) IU/L Alkaline Phosphatase 41 (38-126) U/L Total Protein 7.2 (6.3-8.2) g/dL Albumin 4.2 (3.5-5.0) g/dL Globulin 3.0 (1.7-4.1) g/dL Albumin/Globulin Ratio 1.4 (1.0-2.8) Urine Dip Bedside Urine Glucose Negative Bedside Urine Bilirubin - Negative Bedside Urine Ketone - Negative Urine Specific [place] 1.030 Bedside Urine Occult Blood - Negative Bedside Urine pH 5.5 Bedside Urine Protein - Negative Bedside Urine Urobilinogen - Negative Bedside Urine Nitrite - Negative Bedside Urine Leukocytes - Negative Esterase Point of care testing: Urine Dip Bedside Urine Glucose Negative Bedside Urine Bilirubin - Negative Bedside Urine Ketone - Negative Urine Specific [place] 1.030 Bedside Urine Occult Blood - Negative Bedside Urine pH 5.5 Bedside Urine Protein - Negative Bedside Urine Urobilinogen - Negative Bedside Urine Nitrite - Negative Bedside Urine Leukocytes - Negative Esterase Imaging Data Ob/pelvic ultrasound: Radiologist's Impression: [address] [address] Ultrasound Report Signed Patient: Kadi Dumont MR#: [id number] : 1990 Acct:[id number] Age/Sex: 33 / F Date of Service: 04/24/24 Loc: Accession Number: [id number] Procedure: US OB >= 14 weeks Fetus Ordering Provider: Stiven Purdy MD PROCEDURE: US OB >= 14 WEEKS FETUS INDICATIONS: pain, hx 14weeks gest, also has R ov cyst 18cm awaiting surg OUTSIDE/PRIOR DATING DATA: Last menstrual period (LMP): 01/12/2024. LMP-based estimated date of delivery (VERN): 10/18/2024. First dating scan (date and location): 03/22/2024. Estimated date of delivery (VERN) from first dating scan: 10/18/2024. TECHNIQUE: Real-time scanning was performed of the fetus, with image documentation. COMPARISON: [facility], US OB <= 14 WEEKS FETUS, 03/22/2024, 8:31. FINDINGS: General: A single live intrauterine gestation is present. Presentation: Mobile. Placenta: Placental position is posterior , without previa. Amniotic fluid index: Within normal limits by visual inspection. heart rate: 150 beats per minute. Anatomic survey: It is too early for detailed anatomic evaluation. The right ovary is abnormal, measuring 17.7 x 11.9 x 17.6 cm. There is a complex cyst with debris measuring 8.7 x 3.4 x 2.6 cm. Within the right ovary, there is a solid component seen, with internal vascularity. The left ovary is not seen. IMPRESSION: A single live intrauterine is seen. There is a grossly abnormal right ovarian complex cyst, which is similar to the prior ultrasound. We strive to produce accurate, complete, and clear reports of imaging services. To assist us in improving patient care, this report was composed using standard report templates and voice recognition software. Therefore, it may contain abnormal punctuation, insertions and/or omissions. Occasional wrong-word or sound-alike substitutions may occur. Though we review the report and make efforts to correct it, we do recommend that the report be read carefully in proper context to recognize any text inaccuracies. Dictated by: Nico Luciano M.D. on 04/24/2024 at 18:56 Approved by: Nico Luciano M.D. on 04/24/2024 at 19:00 [facility] Narrative Medical decision making narrative: 33-year-old female currently 14w3d gestation with large known right sided 18 cm x 15 cm ovarian cyst, awaiting gynecological surgery at [facility] in 2 days on Friday, now with a couple hours duration of significantly increased right pelvic and right lower quadrant area discomfort. Afebrile, sirs screen negative, standing leaning over the bed in position of comfort, limited exam but not obviously peritoneal and not obviously distended. No vaginal bleeding symptoms. No leaking of fluid symptoms. DDx consider further progression of known large right-sided ovarian cyst, consider ovarian torsion, ruptured ovarian cyst, infection, other. Keep NPO. Pelvic ultrasound ordered. Offered analgesics, she declined. Records review. Ob ultrasound report date of service 03/22/2024. Impressions: ?Grajeda live uterine at 10 weeks 0 days based on today's crown-rump length. No perigestational hemorrhage. Massive right ovarian cyst measuring 18.1 cm. Small mural nodule measuring 2.5 cm.? In text there is notation of VERN 10/18/2024. Patient now requests antinausea and pain medication, we will give IV morphine, IV Zofran. Ultrasound pending Pelvic ultrasound shows large right ovarian complex cyst, similar to prior ultrasound, see radiology report. Patient more comfortable. Patient given copies of her recent February 2024 report from here, and the copy of the report dictation from [facility]. Follow up with [facility] gynecology Oncology Friday day after tomorrow as planned for her surgery. Given home pack pain medication to use if needed, home pack ondansetron to use if needed. Home with family, stable, improved. Discharge Plan Departure Patient Disposition: Home Clinical Impression: Right lower quadrant abdominal pain, Cyst of right ovary, Activity Restrictions/Additional Instructions: Right-sided abdominal pain, current 14 weeks gestation, known large right-sided ovarian cyst, awaiting gynecology/oncology surgical removal in 2 more days on Friday at [facility]. Nontraumatic increase in right lower abdominal region pain tonight. No fever on triage. IV pain in antinausea medications given, symptoms improved. Leukocytosis elevated white blood cell count on blood test noted, likely pain response related. Urine dip negative for infection. Ultrasound done tonight shows large complex right-sided cyst and live intrauterine , similar to previous study. Copies of both reports from today and also your 03/22/2024 study done here. Home pack of pain medication hydrocodone/Tylenol given, home pack of antinausea medication ondansetron sublingual also given, to use if needed for control of pain and/or nausea symptoms. 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 Return earlier to this/nearest emergency department for any change worsening symptoms or any concerns prior Prescriptions: No Action prenat.vits,tulio,[id number] Tablet 1 tab PO DAILY Referrals: [facility]omer [Primary Care Provider] - Stand Alone Forms: Patient Portal/API/Survey
--- NOTE | 2024-04-24 19:00 | PC.NURSE ---
assisted patient to the bathroom, patient came out of the bathroom and asked for new pants and underwear due to being incontinent which is not her normal. Clean clothing and underwear were provided to the patient, bed left in low position, call light within reach.
[2024-04-24] MEDS: ONDANSETRON 4 MG/2 ML INJ IV (19:20)
[2024-04-24 19:25] VITALS: RESP 18
[2024-04-24] MEDS: MORPHINE 4 MG/ML INJ IV (19:26)
[2024-04-24 19:27] LABS: Alanine Aminotransferase 14 IU/L (<35); Albumin 4.2 g/dL (3.5-5.0); Albumin Globulin Ratio 1.4 (1.0-2.8); Alkaline Phosphatase 41 U/L (38-126); Aspartate Aminotransferase 22 IU/L (14-36); BUN Creatinine Ratio 20.8 (6-22); Bilirubin Total 0.3 mg/dL (0.2-1.3); Blood Urea Nitrogen 11 mg/dL (7-17); Carbon Dioxide 23 mmol/L (22-32); Chloride 103 mmol/L (98-107); Estimated Glomerular Filt Rate > 60 mL/min (>60); Glucose 135 mg/dL (70-100); HEMOLYSIS < 15 (0-50); Potassium 3.5 mmol/L (3.4-5.1); Sodium 134 mmol/L (137-145); Total Protein 7.2 g/dL (6.3-8.2)
[2024-04-24 19:28] LABS: Add Manual Diff / Slide Review NO; Basophils Absolute Auto 0 /uL (0-100); Basophils Percent Auto 0.1 % (0-2); Eosinophils Absolute Auto 0 /uL (0-450); Hematocrit 34.6 % (36-46); Hemoglobin 11.9 g/dL (12.0-16.0); Lymphocytes Absolute Auto 1400 /uL (1100-4500); Lymphocytes Percent Auto 9.2 % (25-40); Mean Corpuscular HGB Conc 34.4 % (30-36); Mean Corpuscular Hemoglobin 30.1 PG (26-34); Mean Corpuscular Volume 87.5 fL (80-100); Monocytes Absolute Auto 600 /uL (0-900); Monocytes Percent Auto 3.7 % (3-14); Neutrophils Absolute Auto 13100 /uL (1500-7000); Platelet Count 314 X10^3/uL (150-400); Red Blood Cell Count 3.95 X10^6/uL (4.0-5.2); White Blood Cell Count 15.1 X10^3/uL (4.5-11.0)
[2024-04-24] MEDS: ONDANSETRON 4 MG ODT PREPACK 1 BOTTLE MISC (20:28)
[2024-04-24] MEDS: HYDROCODONE/ACET 5/325 PREPACK 1 BOTTLE MISC (20:28)
== END 2024-04-24 21:05 | disposition home or self-care (01) ==
PROVIDERS: Emergency Provider Emergency Medicine
DX: O26.892 Other specified pregnancy related conditions, second trimester (principal); N83.201 Unspecified ovarian cyst, right side; R10.31 Right lower quadrant pain; Z3A.14 14 weeks gestation of pregnancy
CPT/HCPCS: 36415; 76811; 76815; 80053; 81003; 85025; 96374; 96375; 99284; J2270; J2405

== ENCOUNTER → 2024-05-04 09:50 | Outpatient (CLI) | payer OTHER, SELFPAY ==
[2024-05-06 20:36] LABS: AFP Value 26.9 ng/mL (.); Gest Age on Col Date 16.1 weeks (.); Insulin Dep Diabetes No (.); OSBR Risk 1IN 10000 (.); Results Report (.); Test Results *Screen Negative* (.)
== END ==
LOC: LAB 09:51
PROVIDERS: Referring Provider Obstetrics & Gynecology; Visit Provider Obstetrics & Gynecology
DX: Z34.82 Encounter for supervision of other normal pregnancy, second trimester (principal); Z3A.20 20 weeks gestation of pregnancy
CPT/HCPCS: 36415; 82105

== ENCOUNTER → 2024-06-10 12:40 | Outpatient (CLI) | payer OTHER, SELFPAY ==
--- NOTE | 2024-06-10 12:42 | DI.US.S_ITS ---
PROCEDURE: US OB >= 14 WEEKS FETUS INDICATIONS: 20 wk anatomy scan OUTSIDE/PRIOR DATING DATA: Last menstrual period (LMP): 01/12/2024 LMP-based estimated date of delivery (VERN): 10/18/2024 First dating scan (date and location): 03/22/2024 Estimated date of delivery (VERN) from first dating scan: 10/18/2024 The calculations are made using the working VERN of 10/18/2024. TECHNIQUE: Real-time scanning was performed of the fetus, with image documentation and biometric measurements. Endovaginal scanning: Not performed COMPARISON: [facility], OB >= 14 WEEKS FETUS, 09/28/2021, 14:51. FINDINGS: General: A single living intrauterine gestation is present. Presentation: Vertex Placenta: Placental position is posterior, without previa. Amniotic fluid index: 18.9 cm, normal range is 5-24 cm. Single deepest vertical pocket is 6.1 cm. heart rate: 144 beats per minute. Maternal cervical canal: Closed and measures 4.4 cm in length. biometrics: Biparietal diameter: 4.7 cm, 20 weeks, 1 day. Head circumference: 16.7 cm, 19 weeks, 3 days. Abdominal circumference: 14.7 cm, 20 weeks, 0 day. Femur length: 3.0 cm, 19 weeks, 3 days. Clinically estimated gestational age: 21 weeks, 3 days. Composite gestational age from present scan: 19 weeks, 4 days. Estimated weight and percentile: 306 g, 1%. Anatomic survey: Neuro: Ventricles are non-dilated at less than 10 mm. Cisterna magna is normal at 3-11 mm. Cerebellum is normal in size and morphology. Nuchal skin fold: Normal at less than 6 mm between 14-21 weeks gestational age. Face: Nose and lips, facial profile are normal. Spine: No evidence for spina bifida. Heart: Abnormal appearing heart is seen with diminished appearance of right ventricle and prominent left ventricular outflow tract. Evaluation is limited due to lie. Diaphragm: Diaphragm is intact. Stomach: Left-sided stomach is present. Small stomach size is noted. Kidneys: No hydronephrosis. Normal is less than 5 mm in 2nd trimester, less than 7 mm in 3rd trimester. Cord: 3-vessel cord has orthotopic insertion. Elevated umbilical cord S/D ratio at its placental insertion is seen measures 6.4. Bladder: Normal in size. Extremities: All 4 extremities identified. IMPRESSION: 1. Single live intrauterine gestation with fetus in vertex presentation. heart rate is 144 beats per minute. Normal KYRA at 18.9 cm. 2. Estimated weight is at 1%. 3. Elevated S/D ratio of umbilical artery at its placental insertion and measures 6.4. 4. Abnormal appearing heart as described above, evaluation is limited due to position. Small stomach lumen. Follow-up study is recommended. Findings were reported to on-call physician by the microelectronics technician at the time of the study. We strive to produce accurate, complete, and clear reports of imaging services. To assist us in improving patient care, this report was composed using standard report templates and voice recognition software. Therefore, it may contain abnormal punctuation, insertions and/or omissions. Occasional wrong-word or sound-alike substitutions may occur. Though we review the report and make efforts to correct it, we do recommend that the report be read carefully in proper context to recognize any text inaccuracies. Dictated by: Adonis Chase M.D. on 06/10/2024 at 15:21 Approved by: Adonis Chase M.D. on 06/10/2024 at 15:25
== END ==
LOC: US 12:42
PROVIDERS: Referring Provider Obstetrics & Gynecology; Visit Provider Obstetrics & Gynecology
DX: O28.3 Abnormal ultrasonic finding on antenatal screening of mother (principal); Z3A.21 21 weeks gestation of pregnancy
CPT/HCPCS: 76811

== ENCOUNTER → 2024-10-05 17:53 | Outpatient (ROUT) | payer OTHER, SELFPAY ==
[2024-10-05 19:58] LABS: Urine N gonorrhoeae NOT DETECTED
[2024-10-05 20:03] LABS: Urine Chlamydia NOT DETECTED
== END ==
PROVIDERS: Visit Provider Obstetrics & Gynecology
DX: O09.899 Supervision of other high risk pregnancies, unspecified trimester (principal); Z3A.08 8 weeks gestation of pregnancy
CPT/HCPCS: 87491; 87591

== ENCOUNTER → 2024-10-14 10:09 | Outpatient (CLI) | payer OTHER, SELFPAY ==
[2024-10-14 10:52] LABS: Add Manual Diff / Slide Review NO; Hematocrit 38.3 % (36-46); Hemoglobin 13.4 g/dL (12.0-16.0); Lymphocytes Absolute Auto 1900 /uL (1100-4500); Mean Corpuscular HGB Conc 34.9 % (30-36); Mean Corpuscular Hemoglobin 30.7 PG (26-34); Mean Corpuscular Volume 87.9 fL (80-100); Platelet Count 350 X10^3/uL (150-400)
[2024-10-14 11:24] LABS: Natera Collection Specimen Collected
[2024-10-14 15:37] LABS: Hepatitis B Surface Antigen NEGATIVE s/c (NEGATIVE)
[2024-10-14 15:53] LABS: HIV 1 & 2 Ab/Ag 4th Gen Combo NEGATIVE (NEGATIVE); Hep C Virus Ab w/Reflex Quant NEGATIVE s/c (NEGATIVE)
== END ==
PROVIDERS: Referring Provider Obstetrics & Gynecology; Visit Provider Obstetrics & Gynecology
DX: O09.899 Supervision of other high risk pregnancies, unspecified trimester (principal); Z36.0 Encounter for antenatal screening for chromosomal anomalies
CPT/HCPCS: 36415; 80055; 86787; 86803; 86850; 86900; 86901; 87389

== ENCOUNTER → 2024-12-23 08:00 | Outpatient (CLI) | payer OTHER, SELFPAY ==
--- NOTE | 2024-12-23 08:00 | DI.US.S_ITS ---
PROCEDURE: US OB >= 14 WEEKS FETUS INDICATIONS: ANATOMY OUTSIDE/PRIOR DATING DATA: Last menstrual period (LMP): 08/04/2024. LMP-based estimated date of delivery (VERN): 05/11/2025. First dating scan (date and location): 10/05/2024. Estimated date of delivery (VERN) from first dating scan: 05/13/2025. TECHNIQUE: Real-time scanning was performed of the fetus, with image documentation and biometric measurements. Endovaginal scanning: Not done COMPARISON: [facility], OB >= 14 WEEKS FETUS, 06/10/2024, 13:01. FINDINGS: General: A single live intrauterine gestation is present. Presentation: Vertex. Placenta: Placental position is anterior , without previa. Amniotic fluid index: 16.9 cm, normal range is 5-24 cm. Single deepest vertical pocket is 5.7 cm. heart rate: Variable, between 105 and 152 beats per minute. Maternal cervical canal: 5.3 cm long. Normal lower limit is 2.5 cm. biometrics: Biparietal diameter: 4.4 cm equals 18 weeks 2 days Head circumference: 16.1 cm equals 18 weeks 6 days Abdominal circumference: 13.5 cm equals 18 weeks 6 days Femur length: 2.8 cm equals 18 weeks 5 days Clinically estimated gestational age: 20 weeks 1 day Composite gestational age from present scan: 19 weeks 0 days Estimated weight and percentile: 260 g, 3rd percentile Anatomic survey: Neuro: Ventricles are non-dilated at less than 10 mm. Cisterna magna is normal at 3-11 mm. Cerebellum is normal in size and morphology. Nuchal skin fold: Normal at less than 6 mm between 14-21 weeks gestational age. Face: Nose and lips, facial profile are normal. Spine: No evidence for spina bifida. Heart: 4-chambered heart is present, with normal ventricular outflow tracts. Diaphragm: Diaphragm is intact. Stomach: Left-sided stomach is present. Kidneys: No hydronephrosis. Normal is less than 5 mm in 2nd trimester, less than 7 mm in 3rd trimester. Cord: 3-vessel cord has orthotopic insertion. Bladder: Normal in size. Extremities: All 4 extremities identified. A maternal left ovarian cyst is seen, with possible associated calcifications measuring 3.8 x 3.8 x 3.3 cm. cord Doppler is measure 3.3 at the cord insertion, 2.1 at the mid cord and 2.1 at the placental cord insertion. IMPRESSION: No anatomy is identified. Variable heart rate, between 105 and 152 beats per minute. The fetus measures smaller gestational age, with the estimated weight at the 3rd percentile. Maternal left ovarian cyst seen with potential associated calcifications, measuring up to 3.8 cm. We strive to produce accurate, complete, and clear reports of imaging services. To assist us in improving patient care, this report was composed using standard report templates and voice recognition software. Therefore, it may contain abnormal punctuation, insertions and/or omissions. Occasional wrong-word or sound-alike substitutions may occur. Though we review the report and make efforts to correct it, we do recommend that the report be read carefully in proper context to recognize any text inaccuracies. Dictated by: Nico Luciano M.D. on 12/23/2024 at 12:06 Approved by: Nico Luciano M.D. on 12/23/2024 at 12:10
== END ==
LOC: US 08:00
PROVIDERS: Referring Provider Obstetrics & Gynecology; Visit Provider Obstetrics & Gynecology
DX: O34.82 Maternal care for other abnormalities of pelvic organs, second trimester (principal); N83.202 Unspecified ovarian cyst, left side; Z3A.19 19 weeks gestation of pregnancy
CPT/HCPCS: 76811; 76820

== ENCOUNTER → 2025-01-24 11:47 | Outpatient (CLI) | payer OTHER, SELFPAY ==
[2025-01-24 14:15] LABS: Hematocrit 33.8 % (36-46); Hemoglobin 11.6 g/dL (12.0-16.0)
[2025-01-24 14:35] LABS: GTT (PREG) 1 Hour PP 50gm Dose 108 mg/dL (76-139)
== END ==
PROVIDERS: Obstetrics & Gynecology; Visit Provider Obstetrics & Gynecology
DX: Z34.82 Encounter for supervision of other normal pregnancy, second trimester (principal)
CPT/HCPCS: 36415; 82950; 85014; 85018; 86850